=== PATIENT | male | born 1950 | race Caucasian/White ===

== ENCOUNTER 2017-05-29 06:20 | Observation (INO) | payer MEDICARE ==
[~2017-05-29] VITALS: Ht 167.6 cm; Wt 177.0 kg
[~2017-05-29 06:20] MED LIST: AMLO2.5T PO; BACT800T5 PO; LISI10TA3 PO; METF500T PO
[2017-05-29 08:00] VITALS: BP 166/101; PULSE 56; RESP 18; TEMP 97; O2SAT 97
[2017-05-29 12:00] VITALS: BP 179/98; PULSE 61; RESP 14; TEMP 96.6; O2SAT 97
[2017-05-29] MEDS ORDERED: ACETAMINOPHEN 325 MG TAB PO PRN ×2 (12:30)
[2017-05-29] MEDS ORDERED: ONDANSETRON HCL 4 MG/2 ML VIAL IVP PRN (12:30)
[2017-05-29] MEDS ORDERED: SODIUM CHLORIDE 0.9% FLUSH 10 ML FLUSH IV FLUSH PRN (12:30)
[2017-05-29] MEDS ORDERED: NALOXONE HCL 0.4 MG/ML AMP IV PUSH PRN (12:30)
[2017-05-29] MEDS ORDERED: GLUCAGON 1 MG/ML VIAL OTHER PRN (12:45)
[2017-05-29] MEDS ORDERED: DEXTROSE 50% IN WATER 50 ML VIAL(D50) IV PUSH PRN (12:45)
--- NOTE | 2017-05-29 12:55 | HHI.HP ---
[facility] Non-Staff Admission Diagnosis Diagnoses: Chief Complaint: Balance problems, difficulty speaking Travel History International Travel<30 Days: No Contact w/Intl Traveler <30 Da: No History of Present Illness The patient is a 67-year-old male with past medical history of diabetes and hypertension who is presenting to the hospital with neurological complaints. He said that yesterday he developed a headache and went to bed early. At 1 AM he noticed that when he was walking he was wobbling and stumbling to the left side. He also experienced a disturbance in his speech. He said his speech sounded strange. He said that episode lasted 10 minutes and went away. He said he fell down secondary to the balance problem. He said the episode occurred again. He came into the hospital for further evaluation. He said once he was here he was confused. He says he currently has no difficulty walking. He says his speech is normal. He still has a minimal headache in the frontal area. He denies any fevers or any recent travel. He denies any medication changes. He says his blood pressure has been running well at home. Review of Systems Except as stated in HPI: all other systems reviewed are Neg Past Family Social History Past Medical History Hypertension Diabetes Allergies: Coded Allergies: diatrizoate meglumine (Unverified Allergy, Mild, Rash, 03/17/17) gadobenic acid (Unverified Allergy, Mild, Rash, 03/17/17) gadodiamide (Unverified Allergy, Mild, Rash, 03/17/17) gadoteridol (Unverified Allergy, Mild, Rash, 03/17/17) iodixanol (Unverified Allergy, Mild, Rash, 03/17/17) iohexol (Unverified Allergy, Mild, Rash, 03/17/17) Active Ordered Medications Current Medications Medications (Trade) Dose Ordered Sig/Alli Route Start Time Stop Time Status Last Admin Sodium Chloride 1,000 ml @ 75 mls/hr [id number] IV 05/29/17 12:20 (NS Flush) 2 ml UNSCH PRN IV FLUSH 05/29/17 12:30 (NS Flush) 2 ml BID IV FLUSH 05/29/17 21:00 (Tylenol) 650 mg Q4H PRN PO 05/29/17 12:30 (Zofran Inj) 4 mg Q6H PRN IVP 05/29/17 12:30 (Tylenol) 650 mg Q6H PRN PO 05/29/17 12:30 (Roxicodone) 10 mg Q4H PRN PO 05/29/17 12:30 (Roxicodone) 5 mg Q4H PRN PO 05/29/17 12:30 (Narcan Inj) 0.4 mg UNSCH PRN IV PUSH 05/29/17 12:30 (Bobbi-Colace) 1 tab BID PO 05/29/17 21:00 (NovoLOG SUPPLEMENTAL SCALE) 1 ACHS SLIDING SCALE SQ 05/29/17 17:00 (D50w (Vial) Inj) 50 ml UNSCH PRN IV PUSH 05/29/17 12:45 (Glucagon Inj) 1 mg UNSCH PRN OTHER 05/29/17 12:45 Family History Diabetes Hypertension CVA Social History The patient does not smoke. He has rare alcohol intake. Physical Exam Vital Signs Vital Signs Date Time Temp Pulse Resp B/P (MAP) Pulse Ox O2 Delivery O2 Flow Rate FiO2 05/29/17 08:00 97.0 56 18 166/101 (122) 97 Physical Exam GENERAL: This is a well-nourished, well-developed patient, in no apparent distress. SKIN: No rashes, ecchymoses or lesions. Cool and dry. HEAD: Atraumatic. Normocephalic. No temporal or scalp tenderness. EYES: Pupils equal round and reactive. Extraocular motions intact. No scleral icterus. No injection or drainage. ENT: Nose without bleeding, purulent drainage or septal hematoma. Throat without erythema, tonsillar hypertrophy or exudate. Uvula midline. Airway patent. NECK: Trachea midline. No JVD or lymphadenopathy. Supple, nontender, no meningeal signs. CARDIOVASCULAR: Regular rate and rhythm without murmurs, gallops, or rubs. No carotid bruits appreciated. RESPIRATORY: Clear to auscultation. Breath sounds equal bilaterally. No wheezes , rales, or rhonchi. GASTROINTESTINAL: Abdomen soft, non-tender, nondistended. No hepato-splenomegaly , or palpable masses. No guarding. MUSCULOSKELETAL: Extremities without clubbing, cyanosis, or edema. No joint tenderness, effusion, or edema noted. NEUROLOGICAL: Awake and alert. Cranial nerves II through XII intact. Motor and sensory grossly within normal limits. Five out of 5 muscle strength in all muscle groups. Normal speech. PSYCH: Mood and affect appropriate. Caprini VTE Risk Assessment Caprini VTE Risk Assessment: Mod/High Risk (score >= 2) Caprini Risk Assessment Model Point Value = 1 Point Value = 2 Point Value = 3 Point Value = 5 Age 41-60 Minor surgery BMI > 25 kg/m2 Swollen legs Varicose veins or History of unexplained or recurrent spontaneous Oral contraceptives or hormone replacement Sepsis (< 1 month) Serious lung disease, including pneumonia (< 1 month) Abnormal pulmonary function Acute myocardial infarction Congestive heart failure (< 1 month) History of inflammatory bowel disease Medical patient at bed rest Age 61-74 Arthroscopic surgery Major open surgery (> 45 min) Laparoscopic surgery (> 45 min) Malignancy Confined to bed (> 72 hours) Immobilizing plaster cast Central venous access Age >= 75 History of VTE Family history of VTE Factor V Leiden Prothrombin [id number] Lupus anticoagulant Anticardiolipin antibodies Elevated serum homocysteine Heparin-induced thrombocytopenia Other congenital or acquired thrombophilia Stroke (< 1 month) Elective arthroplasty Hip, pelvis, or leg fracture Acute spinal cord injury (< 1 month) Prophylaxis Regimen Total Risk Factor Score Risk Level Prophylaxis Regimen 0-1 Low Early ambulation 2 Moderate Order ONE of the following: *Sequential Compression Device (SCD) *Heparin 5000 units SQ BID 3-4 Higher Order ONE of the following medications: *Heparin 5000 units SQ TID *Enoxaparin/Lovenox 40 mg SQ daily (WT < 150 kg, CrCl > 30 mL/min) *Enoxaparin/Lovenox 30 mg SQ daily (WT < 150 kg, CrCl > 10-29 mL/min) *Enoxaparin/Lovenox 30 mg SQ BID (WT < 150 kg, CrCl > 30 mL/min) AND/OR *Sequential Compression Device (SCD) 5 or more Highest Order ONE of the following medications: *Heparin 5000 units SQ TID (Preferred with Epidurals) *Enoxaparin/Lovenox 40 mg SQ daily (WT < 150 kg, CrCl > 30 mL/min) *Enoxaparin/Lovenox 30 mg SQ daily (WT < 150 kg, CrCl > 10-29 mL/min) *Enoxaparin/Lovenox 30 mg SQ BID (WT < 150 kg, CrCl > 30 mL/min) AND *Sequential Compression Device (SCD) Assessment and Plan Assessment and Plan TIA The patient experienced symptoms of stumbling to the left and speech difficulties associated with a headache. Symptoms have resolved except for a minimal headache at this time. Possible TIA versus migraine variant. CT of the head was unremarkable. - Check an MRI of the brain. - Carotid ultrasound and echocardiogram pending. - PT/ OT. - Start aspirin. - Check lipid profile and hemoglobin A1c. - permissive HTN for now. - neuro checks. - pain control as needed. HTN Well controlled at this time. - permissive HTN for now. DM On metformin as an outpt. - insulin sliding scale. - diabetic diet. PPx: Lovenox Code Status Full Discussed Condition With Pt, nurse Long Kerr DO May 29, 2017 12:55
[2017-05-29] MEDS: SODIUM CHLOR 0.9% 1000 ML INJ 1,000 ML IV SCH (13:40)
[2017-05-29] MEDS ORDERED: ENOXAPARIN SODIUM 30 MG/0.3 ML SYRINGE SQ SCH (14:00)
[2017-05-29 14:40] VITALS: O2SAT 97
--- NOTE | 2017-05-29 15:14 | RADRPT ---
EXAM DATE/TIME: 05/29/2017 14:38 [facility] COMPARISON: No previous studies available for comparison. INDICATIONS : Transient ischemic attack. MEDICAL HISTORY : Hypertension. Diabetes. SURGICAL HISTORY : None. ENCOUNTER: Initial ACUITY: 1 day PAIN SCORE: 0/10 LOCATION: Bilateral neck PEAK SYSTOLIC VELOCITIES (cm/sec): ICA/CCA RATIO: Right: 1.0 Left: 0.9 ICA: Right: 70 Left: 61 CCA: Right: 69 Left: 68 ECA: Right: 77 Left: 68 VERTEBRAL: Right: 27 antegrade Left: 41 antegrade Elevated flow velocities and ICA/CCA ratios have been found to correlate with increased degrees of vessel stenosis, calculated as percentage of diameter relative to a normal segment of distal ICA/CCA FINDINGS: RIGHT CAROTID: No significant stenosis is visualized. The waveforms are within normal limits. LEFT CAROTID: No significant stenosis is visualized. The waveforms are within normal limits. VERTEBRAL ARTERIES: Antegrade flow is seen in both vertebral arteries. CONCLUSION: Normal hemodynamic profile both carotids. Robb Otoole MD on May 29, 2017 at 15:11 Board Certified Radiologist. This report was verified electronically.
[2017-05-29 16:00] VITALS: BP 178/102; PULSE 58; RESP 14; TEMP 95.9; O2SAT 97
[2017-05-29 16:31] LABS: CHOLESTEROL 185 MG/DL (120-200); TRIGLYCERIDES 76 MG/DL (42-150)
[2017-05-29 16:33] LABS: CHOLESTEROL/ HDL RATIO 3.52 RATIO; HDL CHOLESTEROL 52.5 MG/DL (40.0-60.0); LDL CHOLESTEROL 117 MG/DL (0-99)
--- NOTE | 2017-05-29 16:56 | RADRPT ---
EXAM DATE/TIME: 05/29/2017 16:40 [facility] COMPARISON: No previous studies available for comparison. INDICATIONS : Slurred speech. MEDICAL HISTORY : Diabetes mellitus type 2. Hypertension. SURGICAL HISTORY : None. ENCOUNTER: Initial ACUITY: 1 day PAIN SCORE: 0/10 LOCATION: cranial TECHNIQUE: Multiplanar, multisequence MRI of the brain was performed without contrast. FINDINGS: CEREBRUM: The ventricles are normal for age. No evidence of midline shift, mass lesion, hemorrhage or acute in farction. No extraaxial fluid collections are seen. The pituitary gland and suprasellar cistern are normal in configuration. WHITE MATTER: No significant signal abnormalities are seen in the white matter. POSTERIOR FOSSA: The cerebellum and brainstem are intact. The 4th ventricle is midline. The cerebellopontine angle is unremarkable. The cerebellar tonsils are normal in position. DIFFUSION IMAGING: No focal areas of restricted diffusion are seen. No evidence of acute infarction. EXTRACRANIAL: The visualized portions of the orbits and paranasal sinuses are unremarkable. CONCLUSION: Negative MRI of the brain without contrast. Robb Otoole MD on May 29, 2017 at 16:53 Board Certified Radiologist. This report was verified electronically.
[2017-05-29] MEDS: INSULIN ASPART SUPPLEMENTAL SCALE SQ SCH ×2 (17:00→20:58)
[2017-05-29 20:21] VITALS: BP 173/95; PULSE 52; RESP 18; TEMP 96.9; O2SAT 99
[2017-05-29] MEDS: DOCUSATE SODIUM 50 MG/SENNA 8.6 MG TAB PO SCH (20:24)
[2017-05-29] MEDS: SODIUM CHLORIDE 0.9% FLUSH 10 ML FLUSH IV FLUSH SCH (20:25)
[2017-05-29 21:13] LABS: HEMOGLOBIN A1C 6.7 % (4.3-6.0)
[2017-05-29 23:11] VITALS: O2SAT 99
[2017-05-30 00:21] VITALS: BP 157/98; PULSE 57; RESP 16; TEMP 95.9; O2SAT 95
[2017-05-30] MEDS: SODIUM CHLOR 0.9% 1000 ML INJ 1,000 ML IV SCH (02:10)
[2017-05-30 08:00] VITALS: PULSE 65
[2017-05-30] MEDS: INSULIN ASPART SUPPLEMENTAL SCALE SQ SCH (08:00)
[2017-05-30] MEDS ORDERED: PILL SPLITTER OTHER PRN (08:15)
[2017-05-30 08:21] LABS: AUTOMATED NEUTROPHIL # 4.2 TH/MM3 (1.8-7.7); BASOPHIL % 0.5 % (0.0-2.0); EOSINOPHIL # 0.1 TH/MM3 (0-0.4); EOSINOPHIL % 1.8 % (0.0-4.0); HEMATOCRIT 45.2 % (39.0-51.0); HEMOGLOBIN 15.1 GM/DL (13.0-17.0); LYMPH % 30.5 % (9.0-44.0); LYMPHOCYTE # 2.1 TH/MM3 (1.0-4.8); MEAN CELL VOLUME 91.2 FL (80.0-100.0); MEAN CORPUSCULAR HEMOGLOBIN 30.5 PG (27.0-34.0); MEAN CORPUSCULAR HGB CONC 33.4 % (32.0-36.0); MONOCYTE # 0.5 TH/MM3 (0-0.9); NEUT % 59.2 % (16.0-70.0); PLATELET COUNT 279 TH/MM3 (150-450); RED BLOOD COUNT 4.95 MIL/MM3 (4.50-5.90); RED CELL DISTRIBUTION WIDTH 12.3 % (11.6-17.2); WHITE BLOOD COUNT 6.9 TH/MM3 (4.0-11.0)
[2017-05-30] MEDS ORDERED: ASPI-99 PO (08:25)
[2017-05-30] MEDS ORDERED: LISI10TA3 PO (08:25)
[2017-05-30] MEDS ORDERED: AMLO5 PO (08:25)
[2017-05-30] MEDS ORDERED: ATOR40TA16 PO (08:25)
--- NOTE | 2017-05-30 08:26 | HHI.DCPOC ---
Discharge Care Plan Diagnosis: (1) TIA (transient ischemic attack) (2) HTN (hypertension) (3) Diabetes Goals to Promote Your Health * To prevent worsening of your condition and complications * To maintain your health at the optimal level Directions to Meet Your Goals Take your medications as prescribed Follow your dietary instruction Follow activity as directed Keep your appointments as scheduled Take your immunizations and boosters as scheduled If your symptoms worsen call your PCP, if no PCP go to Urgent Care Center or Emergency Room Smoking is Dangerous to Your Health. Avoid second hand smoke Call the 24-hour hour crisis hotline for domestic abuse at Long Kerr DO May 30, 2017 08:26
--- NOTE | 2017-05-30 08:26 | HHI.DCPOC ---
Discharge Care Plan Diagnosis: (1) TIA (transient ischemic attack) (2) HTN (hypertension) (3) Diabetes Goals to Promote Your Health * To prevent worsening of your condition and complications * To maintain your health at the optimal level Directions to Meet Your Goals Take your medications as prescribed Follow your dietary instruction Follow activity as directed Keep your appointments as scheduled Take your immunizations and boosters as scheduled If your symptoms worsen call your PCP, if no PCP go to Urgent Care Center or Emergency Room Smoking is Dangerous to Your Health. Avoid second hand smoke Call the 24-hour hour crisis hotline for domestic abuse at Long Kerr DO May 30, 2017 08:26
--- NOTE | 2017-05-30 08:26 | HHI.DCPOC ---
Discharge Care Plan Diagnosis: (1) TIA (transient ischemic attack) (2) HTN (hypertension) (3) Diabetes Goals to Promote Your Health * To prevent worsening of your condition and complications * To maintain your health at the optimal level Directions to Meet Your Goals Take your medications as prescribed Follow your dietary instruction Follow activity as directed Keep your appointments as scheduled Take your immunizations and boosters as scheduled If your symptoms worsen call your PCP, if no PCP go to Urgent Care Center or Emergency Room Smoking is Dangerous to Your Health. Avoid second hand smoke Call the 24-hour hour crisis hotline for domestic abuse at Long Kerr DO May 30, 2017 08:26
[2017-05-30 08:30] LABS: CHLORIDE 106 MEQ/L (98-107); SODIUM (NA) 142 MEQ/L (136-145)
[2017-05-30 08:34] LABS: CALCIUM 8.2 MG/DL (8.5-10.1)
[2017-05-30 08:35] LABS: ALBUMIN 3.5 GM/DL (3.4-5.0); BICARBONATE 29.7 MEQ/L (21.0-32.0); BLOOD UREA NITROGEN 12 MG/DL (7-18); GLUCOSE,RANDOM 117 MG/DL (74-106)
--- NOTE | 2017-05-30 08:36 | HHI.PR ---
Subjective Remarks The patient was resting comfortably in bed. He had no headache. He has been ambulating without difficulty. He denies any speech disturbances. He would like to go home. Objective Vitals Vital Signs Date Time Temp Pulse Resp B/P (MAP) Pulse Ox O2 Delivery O2 Flow Rate FiO2 05/30/17 00:21 95.9 57 16 157/98 (117) 95 05/29/17 23:11 99 21 05/29/17 20:21 96.9 52 18 173/95 (121) 99 05/29/17 16:00 95.9 58 14 178/102 (127) 97 05/29/17 14:40 97 05/29/17 12:00 96.6 61 14 179/98 (125) 97 I/O 05/29/17 05/29/17 05/29/17 05/30/17 05/30/17 05/30/17 07:00 15:00 23:00 07:00 15:00 23:00 Intake Total 2 ml 1000 ml Balance 2 ml 1000 ml Intake IV Total 2 ml 1000 ml Result Diagram: 05/30/17 0755 05/30/17 0755 Imaging Last Impressions Carotid Artery Ultrasound 05/29/17 0000 Signed Impressions: Service Date/Time: Monday, May 29, 2017 14:38 - CONCLUSION: Normal hemodynamic profile both carotids. Robb Otoole MD Brain MRI 05/29/17 0000 Signed Impressions: Service Date/Time: Monday, May 29, 2017 16:40 - CONCLUSION: Negative MRI of the brain without contrast. Robb Otoole MD Objective Remarks GENERAL: This is a well-nourished, well-developed patient, in no apparent distress. SKIN: No rashes, ecchymoses or lesions. Cool and dry. HEAD: Atraumatic. Normocephalic. No temporal or scalp tenderness. EYES: Pupils equal round and reactive. Extraocular motions intact. No scleral icterus. No injection or drainage. ENT: Nose without bleeding, purulent drainage or septal hematoma. Throat without erythema, tonsillar hypertrophy or exudate. Uvula midline. Airway patent. NECK: Trachea midline. No JVD or lymphadenopathy. Supple, nontender, no meningeal signs. CARDIOVASCULAR: Regular rate and rhythm without murmurs, gallops, or rubs. No carotid bruits appreciated. RESPIRATORY: Clear to auscultation. Breath sounds equal bilaterally. No wheezes , rales, or rhonchi. GASTROINTESTINAL: Abdomen soft, non-tender, nondistended. No hepato-splenomegaly , or palpable masses. No guarding. MUSCULOSKELETAL: Extremities without clubbing, cyanosis, or edema. No joint tenderness, effusion, or edema noted. NEUROLOGICAL: Awake and alert. Cranial nerves II through XII intact. Motor and sensory grossly within normal limits. Five out of 5 muscle strength in all muscle groups. Normal speech. PSYCH: Mood and affect appropriate. Medications and IVs Current Medications Medications (Trade) Dose Ordered Sig/Alli Route Start Time Stop Time Status Last Admin Sodium Chloride 1,000 ml @ 75 mls/hr [id number] IV 05/29/17 12:20 05/30/17 02:10 (NS Flush) 2 ml UNSCH PRN IV FLUSH 05/29/17 12:30 (NS Flush) 2 ml BID IV FLUSH 05/29/17 21:00 (Tylenol) 650 mg Q4H PRN PO 05/29/17 12:30 (Zofran Inj) 4 mg Q6H PRN IVP 05/29/17 12:30 (Tylenol) 650 mg Q6H PRN PO 05/29/17 12:30 (Roxicodone) 10 mg Q4H PRN PO 05/29/17 12:30 (Roxicodone) 5 mg Q4H PRN PO 05/29/17 12:30 05/29/17 20:58 (Narcan Inj) 0.4 mg UNSCH PRN IV PUSH 05/29/17 12:30 (Bobbi-Colace) 1 tab BID PO 05/29/17 21:00 (NovoLOG SUPPLEMENTAL SCALE) 1 ACHS SLIDING SCALE SQ 05/29/17 17:00 (D50w (Vial) Inj) 50 ml UNSCH PRN IV PUSH 05/29/17 12:45 (Glucagon Inj) 1 mg UNSCH PRN OTHER 05/29/17 12:45 (Ecotrin Ec) 81 mg DAILY PO 05/30/17 09:00 (Lovenox Inj) 30 mg Q24H SQ 05/29/17 14:00 05/29/17 13:36 (Lipitor) 40 mg DAILY PO 05/30/17 09:00 (Norvasc) 5 mg DAILY PO 05/30/17 09:00 (Prinivil) 20 mg DAILY PO 05/30/17 09:00 A/P Assessment and Plan TIA The patient experienced symptoms of stumbling to the left and speech difficulties associated with a headache. Symptoms have resolved except for a minimal headache at this time. Possible TIA versus migraine variant. CT of the head and MRI of the brain were unremarkable. Carotid US without significant stenosis. LDL 117. - echocardiogram pending. - PT/ OT. - Start aspirin and atorvastatin. - blood pressure control. - neuro checks. - pain control as needed. HTN S/p permissive HTN. - increase home amlodipine to 5 mg daily and lisinopril to 20 mg daily. - PCP follow-up. DM On metformin as an outpt. A1c 6.8%. - insulin sliding scale. - diabetic diet. - resume metformin upon discharge. PPx: Lovenox Discharge Planning The pt would like to be discharged early, so will follow up the echocardiogram results with his PCP. Long Kerr DO May 30, 2017 08:36
[2017-05-30 08:38] LABS: ALT (GPT) 34 U/L (12-78); AST (GOT) 17 U/L (15-37); CREATININE 0.85 MG/DL (0.60-1.30); GLOMERULAR FILTRATION RATE 89 ML/MIN (>89)
[2017-05-30 08:40] LABS: TOTAL BILIRUBIN ADULT 0.8 MG/DL (0.2-1.0)
[2017-05-30 08:41] LABS: ALKALINE PHOSPHATASE 62 U/L (45-117)
[2017-05-30] MEDS ORDERED: amLODIPine BESYLATE 5 MG TAB PO SCH ×2 (09:00)
[2017-05-30] MEDS ORDERED: ATORVASTATIN 40 MG TAB PO SCH (09:00)
[2017-05-30] MEDS ORDERED: LISINOPRIL 10 MG TAB PO SCH ×2 (09:00)
[2017-05-30] MEDS ORDERED: ASPIRIN EC 81 MG TABEC PO SCH (09:00)
[2017-05-30] MEDS: SODIUM CHLORIDE 0.9% FLUSH 10 ML FLUSH IV FLUSH SCH (09:00)
[2017-05-30] MEDS: DOCUSATE SODIUM 50 MG/SENNA 8.6 MG TAB PO SCH (09:00)
== END 2017-05-30 15:56 | disposition home or self-care (01) ==
LOC: PHEDDLT 06:20 → PH3A 06:30 → INTOOBSV 06:30
PROVIDERS: ADMIT Hospitalist; ATTEND Hospitalist
DX: G45.9 Transient cerebral ischemic attack, unspecified (principal); I10 Essential (primary) hypertension; E11.9 Type 2 diabetes mellitus without complications; Z79.84 Long term (current) use of oral hypoglycemic drugs; W19.XXXA Unspecified fall, initial encounter
CPT/HCPCS: 70450; 70551; 71010; 80053; 80061; 81001; 82550; 82948; 83036; 84484; 85025; 85610; 85730; 93005; 93880; 96360; 96361; 96372; 96374; 96375; 97162; 97166; 99285; G0378; G8987; G8988; G8989; J1650; J2405; J7030